=== PATIENT | male | born 1955 | race Caucasian/White ===

== ENCOUNTER 2018-12-19 15:25 | Emergency (ER) | payer MEDICAID ==
[~2018-12-19] VITALS: Ht 162.6 cm; Wt 99.3 kg
[~2018-12-19 15:25] MED LIST: TAMS-14 PO
[2018-12-19 15:43] VITALS: Ht 162.6 cm; Wt 99.3 kg
[2018-12-19 18:50] VITALS: BP 142/70; PULSE 17; RESP 18
== END 2018-12-19 18:49 | disposition home or self-care (01) ==
LOC: FTE 15:25
DX: R35.0 Frequency of micturition (principal)
CPT/HCPCS: 76856; 80053; 81003; 85025; Z7502